=== PATIENT | female | born 1950 | race Caucasian/White ===

== ENCOUNTER → 2017-10-27 | Outpatient (CLI) | payer MEDICAID, MEDICARE ==
--- NOTE | 2017-10-27 13:56 | MM ---
Reason for exam: screening (asymptomatic). Last mammogram was performed 2 years and 4 months ago. History: Patient is postmenopausal and is nulliparous. Benign excisional biopsy of the right breast, 1967. Took estrogen for 7 years. Took progesterone for 7 years. Physical Findings: A clinical breast exam by your physician is recommended on an annual basis and results should be correlated with mammographic findings. MG 3D Screening Mammo W/Cad Bilateral CC and MLO view(s) were taken. Prior study comparison: June 17, 2015, bilateral MG 3d screening mammo w/cad. January 25, 2014, bilateral MG screening mammo w CAD. The breast tissue is heterogeneously dense. This may lower the sensitivity of mammography. No suspicious calcifications are seen. Distortion upper outer right breast posterior third position may be from previous biopsy. Recommended additional views. ASSESSMENT: Incomplete: need additional imaging evaluation, BI-RAD 0 RECOMMENDATION: Special view mammogram of the right breast. If lesion persists on supplemental views, image directed ultrasound is recommended. [facility] will attempt to contact patient to return for supplemental views and ultrasound if indicated.
--- NOTE | 2017-10-28 10:41 | MM ---
Reason for exam: additional evaluation requested from abnormal screening. Last mammogram was performed 2 years and 4 months ago. History: Patient is postmenopausal and is nulliparous. Benign excisional biopsy of the right breast, 1967. Took estrogen for 7 years. Took progesterone for 7 years. MG 3D Work Up W/Cad RT Spot compression CC, spot compression MLO, and LM view(s) were taken of the right breast. Prior study comparison: June 17, 2015, bilateral MG 3d screening mammo w/cad. January 25, 2014, bilateral MG screening mammo w CAD. The breast tissue is heterogeneously dense. This may lower the sensitivity of mammography. Distortion persists upper outer right breast which in retrospect this area was present. Ultrasound is recommended. These results were verbally communicated with the patient and result sheet given to the patient on 10/27/17. ASSESSMENT: Incomplete: need additional imaging evaluation, BI-RAD 0 RECOMMENDATION: Ultrasound of the right breast.
--- NOTE | 2017-10-28 10:42 | USB ---
Reason for exam: additional evaluation requested from abnormal screening. History: Patient is postmenopausal and is nulliparous. Benign excisional biopsy of the right breast, 1966. Took estrogen for 7 years. Took progesterone for 7 years. US Breast Workup Limited RT Right breast ultrasound demonstrates a 0.4 x 0.2 x 0.4cm lesion too small to characterize at 9 o'clock. These results were verbally communicated with the patient and result sheet given to the patient on 10/27/17. ASSESSMENT: Probably benign, BI-RAD 3 RECOMMENDATION: Follow-up diagnostic mammogram and ultrasound of the right breast in 6 months.
== END | disposition home or self-care (01) ==
LOC: RADMAMWWP 12:30
PROVIDERS: ATTEND Internal Medicine Geriatric Medicine
DX: Z12.31 Encounter for screening mammogram for malignant neoplasm of breast (principal); R92.8 Other abnormal and inconclusive findings on diagnostic imaging of breast
CPT/HCPCS: 77067; 77065; 77063; 76642; G0279

== ENCOUNTER → 2018-05-08 | Outpatient (CLI) | payer MEDICAID, MEDICARE ==
[2018-05-08 08:56] LABS: HCT 38.6 % (34.0-46.0); HGB 12.5 gm/dL (11.4-16.0); Hypochromasia Slight; MCH 29.3 pg (25.0-35.0); MCHC 32.3 g/dL (31.0-37.0); MCV 90.6 fL (80.0-100.0); Mean Platelet Volume 7.2; Platelet Count 195 k/uL (150-450); RBC 4.27 m/uL (3.80-5.40); RDW 13.7 % (11.5-15.5)
[2018-05-08 10:56] LABS: Band Neutrophils % 3 %; Eosinophils # (M) 0.08 k/uL (0-0.7); Lymphocytes # (M) 3.36 k/uL (1.0-4.8); Neutrophils % (M) 39 %; Nucleated Red Blood Cells 0 /100 WBC (0-0); Total Cells Counted 100
[2018-05-08 17:33] LABS: Iron Saturation 13.65 (12.00-45.00)
[2018-05-08 17:41] LABS: Folate, Serum 9.3 ng/mL
[2018-05-08 17:47] LABS: Albumin 3.9 g/dL (3.80-4.90); Albumin/Globulin Ratio 1.5 (1.20-2.10); Anion Gap 4.2 mmol/L (4.00-12.00); Calcium 8.8 mg/dL (8.7-10.3); Carbon Dioxide 26.8 mmol/L (21.6-31.8); Globulin 2.6 g/dL (2.1-3.7); Potassium 4.4 mmol/L (3.5-5.5); Total Bilirubin 0.8 mg/dL (0.3-1.2); Total Protein 6.5 g/dL (6.2-8.2)
[2018-05-08 17:53] LABS: T4, Free (Free Thyroxine) 1.1 ng/dL (0.80-1.80)
== END | disposition home or self-care (01) ==
LOC: LABWHC1 07:45
PROVIDERS: ATTEND Internal Medicine Geriatric Medicine
DX: D50.9 Iron deficiency anemia, unspecified (principal); R00.2 Palpitations
CPT/HCPCS: 36415; 80053; 82607; 82746; 83540; 83550; 84439; 84443; 85025

== ENCOUNTER → 2018-05-08 | Outpatient (CLI) | payer MEDICAID, MEDICARE ==
--- NOTE | 2018-05-08 12:46 | XR ---
EXAMINATION TYPE: XR chest 2V DATE OF EXAM: 05/08/2018 COMPARISON: NONE HISTORY: Shortness of breath TECHNIQUE: Frontal and lateral views of the chest are obtained. FINDINGS: There is no pleural effusion or pneumothorax seen. The cardiac silhouette size is within normal limits. Patient is kyphotic. Question asymmetric density in the right paratracheal location as compared to left of the frontal exam. The osseous structures are intact. IMPRESSION: Question suprahilar asymmetric density on the right, consider apical lordotic chest x-ra y, chest CT for better evaluation.
== END ==
LOC: RADXRMAIN 11:38
PROVIDERS: ATTEND Internal Medicine Geriatric Medicine
DX: R06.02 Shortness of breath (principal)
CPT/HCPCS: 71046

== ENCOUNTER → 2018-05-17 | Outpatient (CLI) | payer MEDICAID ==
--- NOTE | 2018-05-18 07:15 | CT ---
EXAMINATION TYPE: CT chest wo/w con DATE OF EXAM: 05/17/2018 COMPARISON: Chest x-ray from May 08, 2018 HISTORY: Shortness of breath. Chest tightness and heaviness. Abnormal chest x-ray. CT DLP: 210.9 mGycm. Automated Exposure Control for Dose Reduction was Utilized. TECHNIQUE: CT scan of the thorax is performed following without and with IV Contrast, patient inject ed with 100 mL of Isovue 300. FINDINGS: LUNGS: There is some patchy bibasilar linear scarring and/or atelectasis near diaphragm. No suspiciou s spiculated nodule or mass identified at area of x-ray concern right suprahilar region. There is how ever right upper lobe nodule superior to this measuring 8 x 6 mm axial image 9 with suggestion of enh ancement. No pleural effusion or pneumothorax is seen. Tracheobronchial tree is patent. MEDIASTINUM: There are no greater than 1 cm hilar or mediastinal lymph nodes. No pericardial effusi on is seen. Heart size is upper limits of normal. OTHER: There is prominent left hepatic lobe which is normal variant. Main portal vein is mildly dilat ed at 14 mm without filling defect. Patient has very little intra-abdominal fat. There is exaggerated thoracic kyphosis with mild multilevel spurring. IMPRESSION: 1. No suspicious acute pulmonary process. Mild patchy bibasilar linear scarring and/or atelectasis. 2. There is 8 x 6 mm right upper lobe nodule. Follow-up CT in 6-12 months time is advised as per [employer] recommendations to reassess.
== END ==
LOC: RADCTMAIN 15:56
PROVIDERS: ATTEND Internal Medicine Geriatric Medicine
DX: R91.1 Solitary pulmonary nodule (principal)
CPT/HCPCS: 71270; Q9967

== ENCOUNTER → 2018-05-26 | Outpatient (CLI) | payer MEDICAID ==
[2018-05-26 07:44] LABS: Basophils % (A) 1 %; Eosinophils # (A) 0.1 k/uL (0-0.7); Eosinophils % (A) 2 %; HCT 38.9 % (34.0-46.0); HGB 12.2 gm/dL (11.4-16.0); Hypochromasia Slight; Lymphocytes # (A) 2.7 k/uL (1.0-4.8); Lymphocytes % (A) 46 %; MCH 28.3 pg (25.0-35.0); MCHC 31.4 g/dL (31.0-37.0); MCV 90.4 fL (80.0-100.0); Mean Platelet Volume 7.3; Monocytes # (A) 0.4 k/uL (0-1.0); Monocytes % (A) 6 %; Neutrophils # (A) 2.4 k/uL (1.3-7.7); Neutrophils % (A) 42 %; Platelet Count 213 k/uL (150-450); RDW 14.5 % (11.5-15.5); WBC 5.8 k/uL (3.8-10.6)
[2018-05-26 11:29] LABS: Erythrocyte Sedimentation Rate 16 mm/hr (0-20)
[2018-05-26 11:45] LABS: Albumin 4.1 g/dL (3.80-4.90); Albumin/Globulin Ratio 1.46 (1.20-2.10); Anion Gap 8.1 mmol/L (4.00-12.00); Bilirubin, Conjugated 0.3 mg/dL (0.20-0.40); Bilirubin,Unconjugated 0.8 mg/dL; Calcium 9.1 mg/dL (8.7-10.3); Carbon Dioxide 26.9 mmol/L (21.6-31.8); Globulin 2.8 g/dL (2.1-3.7); LDL Cholesterol,Calculated 113.6 mg/dL (0.0-131.0); Potassium 5.1 mmol/L (3.5-5.5); Total Bilirubin 1.1 mg/dL (0.2-1.2); Total Protein 6.9 g/dL (6.2-8.2); VLDL Calculation 17.4 mg/dL (5.00-40.00)
[2018-05-26 11:48] LABS: Hepatitis A Antibody IgM Non-Reactive (Non-Reactive); Hepatitis B Core IgM Non-Reactive (Non-Reactive)
[2018-05-26 11:52] LABS: T4, Free (Free Thyroxine) 1.2 ng/dL (0.80-1.80)
[2018-05-26 16:18] LABS: Hemoglobin A1C 5.9 % (4.0-6.0)
== END | disposition home or self-care (01) ==
LOC: LABWHC1 06:30
PROVIDERS: ATTEND Internal Medicine Geriatric Medicine
DX: Z00.00 Encounter for general adult medical examination without abnormal findings (principal); J18.1 Lobar pneumonia, unspecified organism; R94.5 Abnormal results of liver function studies
CPT/HCPCS: 36415; 80053; 80061; 80074; 82248; 83036; 84439; 84443; 85025; 85652

== ENCOUNTER → 2018-09-20 | Outpatient (CLI) | payer MEDICAID, MEDICARE ==
--- NOTE | 2018-09-20 11:23 | XR ---
EXAMINATION TYPE: XR knee complete LT DATE OF EXAM: 09/20/2018 CLINICAL HISTORY: Fall with left knee pain TECHNIQUE: Three views of the left knee are obtained. COMPARISON: None. FINDINGS: There is no acute fracture/dislocation evident in left knee. Small marginal osteophytes ar e seen in the medial compartment, lateral compartment and patellofemoral compartment. Small suprapate llar joint effusion is evident. IMPRESSION: There is no acute fracture or dislocation in the left knee. Mild tricompartmental arthro alana and small suprapatellar joint effusion.
== END | disposition home or self-care (01) ==
LOC: RADXRMAIN 10:33
PROVIDERS: ATTEND Radiology Diagnostic Radiology
DX: M17.12 Unilateral primary osteoarthritis, left knee (principal)

== ENCOUNTER → 2018-10-28 | Outpatient (CLI) | payer MEDICAID ==
[2018-10-28 17:11] LABS: T4, Free (Free Thyroxine) 1.2 ng/dL (0.80-1.80)
[2018-10-28 17:12] LABS: Thyroid Peroxidase Antibodies 33.8 U/mL (0.0-60.0); Vitamin D 25 Hydroxy 20.4 ng/mL (30.0-100.0)
[2018-10-28 17:17] LABS: Progesterone <0.2 ng/mL
== END ==
LOC: LABWHC1 08:10
PROVIDERS: ATTEND Obstetrics & Gynecology
DX: N95.1 Menopausal and female climacteric states (principal); G47.00 Insomnia, unspecified; N95.2 Postmenopausal atrophic vaginitis; R53.83 Other fatigue
CPT/HCPCS: 36415; 82306; 82607; 82670; 83001; 84144; 84403; 84439; 84443; 86376

== ENCOUNTER → 2018-11-07 | Outpatient (CLI) | payer MEDICAID, MEDICARE ==
--- NOTE | 2018-11-08 12:09 | MM ---
Reason for exam: screening (asymptomatic). Last mammogram was performed 1 year ago. History: Patient is postmenopausal and is nulliparous. Benign excisional biopsy of the right breast, 1967. Took estrogen for 7 years. Took progesterone for 7 years. Physical Findings: A clinical breast exam by your physician is recommended on an annual basis and results should be correlated with mammographic findings. MG 3D Screening Mammo W/Cad Bilateral CC, MLO, and XCCL view(s) were taken. Prior study comparison: October 27, 2017, right breast MG 3d work up w/cad RT. October 27, 2017, bilateral MG 3d screening mammo w/cad. June 17, 2015, bilateral MG 3d screening mammo w/cad. The breast tissue is extremely dense which could obscure a lesion on mammography. Finding #1: There is stable architectural distortion in the right breast consistent with known excisional biopsy. Finding #2: There are typically benign round calcifications in the right breast. There is no discrete abnormality. ASSESSMENT: Benign, BI-RAD 2 RECOMMENDATION: Routine screening mammogram of both breasts in 1 year.
== END | disposition home or self-care (01) ==
LOC: RADMAMWWP 06:47
PROVIDERS: ATTEND Internal Medicine Geriatric Medicine
DX: Z12.31 Encounter for screening mammogram for malignant neoplasm of breast (principal)
CPT/HCPCS: 77063; 77067

== ENCOUNTER → 2018-12-30 | Outpatient (CLI) | payer MEDICAID, MEDICARE ==
[2018-12-30 16:32] LABS: Progesterone 91.2 ng/mL
== END | disposition home or self-care (01) ==
LOC: LABWHC1 08:11
PROVIDERS: ATTEND Obstetrics & Gynecology
DX: R53.83 Other fatigue (principal); E34.50 Androgen insensitivity syndrome, unspecified; N95.1 Menopausal and female climacteric states; N95.2 Postmenopausal atrophic vaginitis
CPT/HCPCS: 36415; 82670; 83001; 84144; 84403

== ENCOUNTER → 2020-02-04 | Outpatient (CLI) | payer MEDICARE, OTHER ==
--- NOTE | 2020-02-11 09:18 | MM ---
Reason for exam: screening (asymptomatic). Last mammogram was performed 1 year and 3 months ago. History: Patient is postmenopausal and is nulliparous. Benign excisional biopsy of the right breast, 1967. Took estrogen for 7 years. Took progesterone for 7 years. Physical Findings: A clinical breast exam by your physician is recommended on an annual basis and results should be correlated with mammographic findings. MG 3D Screening Mammo W/Cad Bilateral CC, MLO, and XCCL view(s) were taken. Prior study comparison: November 07, 2018, bilateral MG 3d screening mammo w/cad. October 27, 2017, right breast MG 3d work up w/cad RT. The breast tissue is extremely dense which could obscure a lesion on mammography. Finding: Architectural distortion in the upper outer quadrant, anterior position of the right breast consistent with known excisional changes. There are typically benign round calcifications in the right breast. There is no discrete abnormality. ASSESSMENT: Benign, BI-RAD 2 RECOMMENDATION: Routine screening mammogram of both breasts in 1 year.
== END | disposition home or self-care (01) ==
LOC: RADMAMWWP 06:09
PROVIDERS: ATTEND Internal Medicine Geriatric Medicine
DX: Z12.31 Encounter for screening mammogram for malignant neoplasm of breast (principal)
CPT/HCPCS: 77063; 77067

== ENCOUNTER → 2021-02-09 | Outpatient (CLI) | payer MEDICARE ==
--- NOTE | 2021-02-10 10:44 | MM ---
Reason for exam: screening (asymptomatic). Last mammogram was performed 1 year ago. History: Patient is postmenopausal and is nulliparous. Benign excisional biopsy of the right breast, 1967. Took estrogen for 7 years. Took progesterone for 7 years. Physical Findings: A clinical breast exam by your physician is recommended on an annual basis and results should be correlated with mammographic findings. MG 3D Screening Mammo W/Cad Bilateral CC, MLO, and XCCL view(s) were taken. Prior study comparison: February 04, 2020, bilateral MG 3d screening mammo w/cad. November 07, 2018, bilateral MG 3d screening mammo w/cad. October 27, 2017, bilateral MG 3d screening mammo w/cad. The breast tissue is extremely dense which could obscure a lesion on mammography. There are benign appearing round calcifications in the right breast. There is no discrete abnormality. ASSESSMENT: Negative, BI-RAD 1 RECOMMENDATION: Routine screening mammogram of both breasts in 1 year. Some consider bilateral ultrasound surveillance in patient with extremely dense fibroglandular tissue.
== END | disposition home or self-care (01) ==
LOC: RADMAMWWP 07:24
PROVIDERS: ATTEND Internal Medicine Geriatric Medicine
DX: Z12.31 Encounter for screening mammogram for malignant neoplasm of breast (principal); Z78.0 Asymptomatic menopausal state
CPT/HCPCS: 77063; 77067

== ENCOUNTER → 2022-02-10 | Outpatient (CLI) | payer MEDICARE ==
--- NOTE | 2022-02-26 07:32 | MM ---
Reason for Exam: Screening (asymptomatic). Last screening mammogram was performed 12 month(s) ago. Patient History: Menarche at age 14. Patient has no children. Postmenopausal. Estrogen for 7 years until age 56. Progesterone for 7 years until age 56. Currently using Estrogen and Progesterone, starting at age 66. 1966, Benign Excisional Biopsy on the right side. Risk Values: Linda 5 year model risk: 2.3%. NCI Lifetime model risk: 6.6%. Prior Study Comparison: 10/27/2017 Bilateral Screening Mammogram, [facility]. 10/27/2017 Right Diagnostic Mammogram, [facility]. 11/07/2018 Bilateral Screening Mammogram, [facility]. 02/04/2020 Bilateral Screening Mammogram, [facility]. 02/09/2021 Bilateral Screening Mammogram, [facility]. Tissue Density: The breast tissue is extremely dense which could obscure a lesion on mammography. Findings: Analyzed By CAD. A few scattered round calcifications throughout the right breast are redemonstrated. There is no suspicious group of microcalcifications or new suspicious mass in either breast. Overall Assessment: Benign, BI-RAD 2 Management: Screening Mammogram of both breasts in 1 year. Some advise bilateral breast ultrasound surveillance in patients with background dense tissue. A clinical breast exam by your physician is recommended on an annual basis and results should be correlated with mammographic findings. Electronically signed and approved by: Tio De La Garza M.D.
== END | disposition home or self-care (01) ==
LOC: RADMAMWWP 06:35
PROVIDERS: ATTEND Internal Medicine Geriatric Medicine
DX: Z12.31 Encounter for screening mammogram for malignant neoplasm of breast (principal); Z78.0 Asymptomatic menopausal state
CPT/HCPCS: 77063; 77067

== ENCOUNTER → 2023-02-14 | Outpatient (CLI) | payer MEDICARE ==
--- NOTE | 2023-02-14 08:46 | MM ---
Reason for Exam: Screening (asymptomatic). Last screening mammogram was performed 12 month(s) ago. Patient History: Menarche at age 14. Patient has no children. Postmenopausal. Estrogen for 7 years until age 56. Progesterone for 7 years until age 56. Currently using Estrogen and Progesterone, starting at age 66. 1966, Benign Excisional Biopsy on the right side. Risk Values: Linda 5 year model risk: 2.3%. NCI Lifetime model risk: 6.3%. Prior Study Comparison: 10/27/2017 Bilateral Screening Mammogram, [facility]. 10/27/2017 Right Diagnostic Mammogram, [facility]. 11/07/2018 Bilateral Screening Mammogram, [facility]. 02/04/2020 Bilateral Screening Mammogram, [facility]. 02/09/2021 Bilateral Screening Mammogram, [facility]. 02/10/2022 Bilateral MG 3D screening mammo w/cad, [facility]. Tissue Density: The breast tissue is extremely dense which could obscure a lesion on mammography. Findings: Analyzed By CAD. There is no suspicious group of microcalcifications or new suspicious mass in either breast. Overall Assessment: Negative, BI-RAD 1 Management: Screening Mammogram of both breasts in [address] [facility] will attempt to contact patient to return for supplemental views and ultrasound if indicated. Patient should continue monthly self-breast exams. A clinical breast exam by your physician is recommended on an annual basis. This exam should not preclude additional follow-up of suspicious palpable abnormalities. Note on Linda scores and lifetime risk: 1. A Linda score greater than 3% is considered moderate risk. If this is the case, consider specialist referral to assess eligibility for a risk reducing agent. 2. If overall lifetime risk for the development of breast cancer is 20% or higher, the patient may qualify for future screening with alternating mammogram and breast MRI. Electronically signed and approved by: Cristino De La Torre DO
== END | disposition home or self-care (01) ==
LOC: RADMAMWWP 06:39
PROVIDERS: ATTEND Internal Medicine Geriatric Medicine
DX: Z12.31 Encounter for screening mammogram for malignant neoplasm of breast (principal); Z78.0 Asymptomatic menopausal state
CPT/HCPCS: 77063; 77067

== ENCOUNTER → 2024-02-20 | Outpatient (CLI) | payer MEDICARE ==
--- NOTE | 2024-03-14 19:49 | MM ---
Reason for Exam: Screening (asymptomatic). Last screening mammogram was performed 12 month(s) ago. Patient History: Menarche at age 14. Patient has no children. Postmenopausal. Estrogen for 7 years until age 56. Progesterone for 7 years until age 56. Currently using Estrogen and Progesterone, starting at age 66. 1966, Benign Excisional Biopsy on the right side. Risk Values: Linda 5 year model risk: 2.3%. NCI Lifetime model risk: 6.0%. Prior Study Comparison: 10/27/2017 Bilateral Screening Mammogram, [facility]. 10/27/2017 Right Diagnostic Mammogram, [facility]. 10/27/2017 Right Diagnostic Ultrasound, [facility]. 11/07/2018 Bilateral Screening Mammogram, [facility]. 02/04/2020 Bilateral Screening Mammogram, [facility]. 02/09/2021 Bilateral Screening Mammogram, [facility]. 02/10/2022 Bilateral MG 3D screening mammo w/cad, [facility]. 02/14/2023 Bilateral MG 3D screening mammo w/cad, [facility]. Tissue Density: The breasts are extremely dense, which lowers the sensitivity of mammography. Findings: Analyzed By CAD. Faint regional calcifications superiorly in the left breast are unchanged. Areas of asymmetric density remain unchanged as well. There is no suspicious group of microcalcifications or new suspicious mass in either breast. Overall Assessment: Benign, BI-RAD 2 Management: Screening Mammogram of both breasts in 1 year. Given patient's dense breast, supplementary screening with breast ultrasound can be considered. Patient should continue monthly self-breast exams. A clinical breast exam by your physician is recommended on an annual basis. This exam should not preclude additional follow-up of suspicious palpable abnormalities. Note on Linda scores and lifetime risk: 1. A Linda score greater than 3% is considered moderate risk. If this is the case, consider specialist referral to assess eligibility for a risk reducing agent. 2. If overall lifetime risk for the development of breast cancer is 20% or higher, the patient may qualify for future screening with alternating mammogram and breast MRI. Electronically signed and approved by: Jefe Man M.D. Radiologist
== END | disposition home or self-care (01) ==
LOC: RADMAMWWP 14:27
PROVIDERS: ATTEND Internal Medicine Geriatric Medicine
DX: Z12.31 Encounter for screening mammogram for malignant neoplasm of breast
CPT/HCPCS: 77063; 77067